=== PATIENT | male | born 1985 | race Caucasian/White ===

== ENCOUNTER 2016-11-27 09:04 | Emergency (ER) | payer OTHER ==
[2016-11-27] MEDS ORDERED: TDAP ADULT 0.5 ML INJ (BOOSTRIX) IM ONE (09:09)
[2016-11-27] MEDS ORDERED: IBUPROFEN 600 MG TAB PO ONE (09:09)
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
[2016-11-27] MEDS ORDERED: LET GEL TOPICAL 1 EA SYR TP ONE ×2 (10:08→10:14)
[2016-11-27 12:53] VITALS: BP 109/71; PULSE 71; RESP 16; TEMP 98.4; O2SAT 98
== END 2016-11-27 12:52 | disposition home or self-care (01) ==
DX: S82.142A Displaced bicondylar fracture of left tibia, initial encounter for closed fracture (principal); S40.812A Abrasion of left upper arm, initial encounter; S40.811A Abrasion of right upper arm, initial encounter; S80.812A Abrasion, left lower leg, initial encounter; S80.811A Abrasion, right lower leg, initial encounter; Z23 Encounter for immunization; V03.90XA Pedestrian on foot injured in collision with car, pick-up truck or van, unspecified whether traffic or nontraffic accident, initial encounter; Y92.410 Unspecified street and highway as the place of occurrence of the external cause; Y99.8 Other external cause status; Y93.01 Activity, walking, marching and hiking
CPT/HCPCS: L1830